=== PATIENT | male | born 1955 | race African-American/Black ===

== ENCOUNTER 2017-08-21 12:01 | Inpatient (IN) | payer OTHER ==
[2017-08-21] MEDS: IV NORMAL SALINE 1000ML BAG 1,000 ML IV ×4 (12:40→15:55)
[2017-08-21] MEDS: ONDANSETRON PF 4 MG/2 ML VIAL. IV ×2 (12:40)
[2017-08-21 12:53] LABS: BASO % 0 % (0-3); EOS # 0.1 x10^3/uL (0.0-0.7); EOS % 1 % (0-3); HEMATOCRIT 43.6 % (39.0-53.0); HEMOGLOBIN 13.8 g/dL (13.0-17.5); LYMPH # 0.6 x10^3/uL (1.0-4.8); LYMPH % 7 % (24-48); MEAN CORPUSCULAR HEMOGLOBIN 24 pg (25-35); MEAN CORPUSCULAR HGB CONC 32 g/dL (31-37); MEAN CORPUSCULAR VOLUME 75 fL (79-100); MONO # 0.4 x10^3/uL (0.0-1.1); MONO % 5 % (0-9); NEUT # 7.5 x10^3uL (1.8-7.7); NEUT % 86 % (31-73); PLATELET COUNT 140 x10^3/uL (140-400); RED BLOOD COUNT 5.85 x10^6/uL (4.30-5.70); RED CELL DISTRIBUTION WIDTH 15.1 % (11.5-14.5); WHITE BLOOD COUNT 8.7 x10^3/uL (4.0-11.0)
[2017-08-21 12:55] LABS: ADD MAN DIFF? YES; ANION GAP 10 (6-14); BLOOD UREA NITROGEN 15 mg/dL (8-26); BUN/CREATININE RATIO 14 (6-20); CALCIUM 8.6 mg/dL (8.5-10.1); CARBON DIOXIDE 26 mmol/L (21-32); CHLORIDE 105 mmol/L (98-107); CREATININE 1.1 mg/dL (0.7-1.3); GFR 82.6; GLUCOSE 122 mg/dL (70-99); POTASSIUM 3.9 mmol/L (3.5-5.1); SODIUM 141 mmol/L (136-145)
[2017-08-21 13:02] LABS: ALBUMIN 3.6 g/dL (3.4-5.0); ALBUMIN/GLOBULIN RATIO 1.1 (1.0-1.7); ALK PHOS 56 U/L (46-116); ALT (SGPT) 20 U/L (16-63); AST (SGOT) 22 U/L (15-37); MAGNESIUM 1.7 mg/dL (1.8-2.4); TOTAL BILIRUBIN 0.9 mg/dL (0.2-1.0)
[2017-08-21 13:04] LABS: TROPONINI < 0.017 ng/mL (0.000-0.055)
[2017-08-21 13:09] LABS: CKMB INDEX 0.6 % (0-4); CREATINE KINASE 160 U/L (39-308)
[2017-08-21 13:09] LABS: NT-PRO BNP 30 pg/mL (0-124)
[2017-08-21 13:18] LABS: % EOS 1 % (0-5); % LYMPHS 8 % (24-48); % MONOS 4 % (0-10); % SEGS 87 % (35-66)
[2017-08-21 13:19] LABS: ANISOCYTOSIS PRESENT; PLT ESTIMATE ADEQUATE (ADEQUATE)
[2017-08-21] MEDS ORDERED: ONDANSETRON PF 4 MG/2 ML VIAL. IV ×2 (14:30)
[2017-08-21] MEDS ORDERED: ACETAMINOPHEN 325 MG TABLET. PO ×2 (17:15)
[2017-08-22] MEDS: IV NORMAL SALINE 1000ML BAG 1,000 ML IV ×2 (01:11)
[2017-08-22 09:26] LABS: THYROID STIM HORMONE (TSH) 6.804 uIU/mL (0.358-3.74)
[2017-08-22] MEDS: POTASSIUM CL 20MEQ D5-0.45NACL 1,000 ML IV ×4 (09:44→20:45)
== END 2017-08-23 10:40 | disposition home or self-care (01) | DRG 392 ==
LOC: ER 12:01 → 5 NORTH 14:15
DX: A08.4 Viral intestinal infection, unspecified (principal); E03.9 Hypothyroidism, unspecified; J45.909 Unspecified asthma, uncomplicated; Z88.8 Allergy status to other drugs, medicaments and biological substances
CPT/HCPCS: 36415; 80053; 82553; 83735; 83880; 84443; 84484; 85007; 85025; 93005; 96361; 96374; 99285-25; J2405; J7030